=== PATIENT | female | born 1950 | race Caucasian/White ===

== ENCOUNTER 2018-10-23 00:31 | Emergency (ER) ==
[2018-10-23] MEDS ORDERED: SODIUM CHLORIDE 1,000 ML IV STA (00:43)
[2018-10-23] MEDS ORDERED: PHENERGAN 25 MG/ML VIAL 12.5 MG in SODIUM CHLORIDE 50 ML IV STA (00:44)
[2018-10-23] MEDS ORDERED: ZOFRAN 4 MG/2 ML IVP STA (00:44)
[2018-10-23 00:58] VITALS: BP 172/80; TEMP 98.2
--- NOTE | 2018-10-23 01:45 | CT ---
EXAM: CT scan brain without contrast HISTORY: Vertigo COMPARISON: None. FINDINGS: Contiguous axial images obtained from skull base to the convexities without contrast utili zing 5-mm collimation. Sagittal and coronal reconstructions were imaged and reviewed.. Ventricles a nd CSF spaces are prominent compatible with age appropriate atrophy. There is mild periventricular h ypodensity noted compatible with chronic microvascular disease. Atherosclerotic changes are seen inv olving the left vertebral and bilateral cavernous internal carotid arteries. Minimal mucoperiosteal thickening is seen in the bilateral maxillary sinuses. Mastoid air cells are clear. IMPRESSION: Age appropriate atrophy with chronic microvascular disease. ASVD.
--- NOTE | 2018-10-23 02:04 | ED.PDOC ---
General ED Provider: Dr. KAUSHAL GOTTI-ER Chief Complaint: Dizziness Stated Complaint: i feel like everything it spiinning Time Seen by Physician: 00:35 Mode of Arrival: Walk-In Information Source: Patient Exam Limitations: No limitations Nursing and Triage Documentation Reviewed and Agree: Yes Does patient meet sepsis criteria?: No System Inflammatory Response Syndrome: Not Applicable Sepsis Protocol: For patient's 13 years and over: Temp is 96.8 and below OR 101 and greater Pulse >90 BPM Resp >20/minute Acutely Altered Mental Status Are patient's symptoms suggestive of a new infection, such as: -Pneumonia -Skin, Soft Tissue -Endocarditis -UTI -Bone, Joint Infection -Implantable Device -Acute Abdominal Infection -Wound Infection -Meningitis -Blood Stream Catheter Infection -Unknown Neurological Complaint Exam - Neurological Deficit Complaint/Exam Patient Complains of: Reports: Abnormal sensation Symptom Onset Unknown: No Onset: Gradual Symptoms Are: Still present Initial Severity: Mild Current Severity: Moderate Location: Reports: Generalized Aggravating: Reports: None Alleviating: Reports: None Carotid Bruit Present: No Focal Weakness: Present: None Focal Sensory Loss: Present: None Gait: Normal Nystagmus Present: No Gag Reflex Present: Yes [id number]: Normal Findings Heel to Toe Normal: Yes Signs of Trauma: No Review of Systems - Review Of Systems Constitutional: Reports: No symptoms Eyes: Reports: No symptoms Ears, Nose, Mouth, Throat: Reports: No symptoms Respiratory: Reports: No symptoms Cardiac: Reports: No symptoms GI: Reports: No symptoms : Reports: No symptoms Musculoskeletal: Reports: No symptoms Skin: Reports: No symptoms Neurological: Reports: Other Endocrine: Reports: No symptoms Hematologic/Lymphatic: Reports: No symptoms All Other Systems: Reviewed and Negative Past Medical History - Past Medical History Previously Healthy: Yes Endocrine: Reports: Unknown Cardiovascular: Reports: Unknown Respiratory: Reports: Unknown Hematological: Reports: Unknown Gastrointestinal: Reports: Unknown Genitourinary: Reports: Unknown Neuro/Psych: Reports: Unknown Musculoskeletal: Reports: Unknown Cancer: Reports: Unknown Last Menstrual Period: UNKNOWN - Surgical History General Surgical History: Reports: Unknown - Family History Family History: Reports: Unknown - Social History Smoking Status: Former smoker Hx Substance Use: No Alcohol Screening: Occasionally - Immunizations Tetanus Shot up to Date: No Physical Exam - Physical Exam Appearance: Well-appearing, No pain distress, Well-nourished Eyes: ALTON ENT: Ears normal, Nose normal, Oropharynx normal Neck: Supple Respiratory: Airway patent Cardiovascular: RRR GI/: Soft, Nontender, No masses, Bowel sounds normal, No Organomegaly Musculoskeletal: Normal strength, ROM intact, No edema, No calf tenderness Skin: Warm, Dry, Normal color Neurological: Sensation intact, Alert, Oriented Psychiatric: Affect appropriate, Mood appropriate Interpretation - Radiology Interpretation Radiology Interpretation By: Radiologist Radiology Results: Negative Exam Interpreted: CT Scan - EKG Interpretation Time of EKG #1: 02:04 Rate: Normal Rhythm: Sinus Ectopy: None [place]: NL ST Segment: Normal Interpretation: nsr Re-Evaluation - Re-Evaluation Time of Re-Evaluation: 02:04 Status: Improved Vital Signs Stable: Yes Pain Level: 0 Appearance: NAD Lungs: Clear Skin: Warm and Dry CV: RRR Additional Comments: vertigo and nausea much better Critical Care Note - Critical Care Note Total Time (mins): 30 Course - Course Hematology/Chemistry: 10/23/18 00:50 10/23/18 00:50 Orders, Labs, Meds: Lab Review 10/23/18 10/23/18 10/23/18 00:50 00:50 00:50 WBC 9.62 RBC 4.61 Hgb 13.6 Hct 39.8 MCV 86.3 MCH 29.5 MCHC 34.2 RDW Coeff of Lionel 13.0 Plt Count 196 Immature Gran % (Auto) 0.3 Neut % (Auto) 56.2 Lymph % (Auto) 31.3 [place] % (Auto) 9.0 Eos % (Auto) 2.7 Baso % (Auto) 0.5 Immature Gran # (Auto) 0.0 Neut # (Auto) 5.4 Lymph # (Auto) 3.0 [place] # (Auto) 0.9 Eos # (Auto) 0.3 Baso # (Auto) 0.1 ESR 16 Sodium 137.5 Potassium 3.63 Chloride 100.5 Carbon Dioxide 26.9 Anion Gap 13.73 BUN 15.8 Creatinine 0.76 Estimated GFR (MDRD) 76.00 BUN/Creatinine Ratio 20.78 Glucose 126.0 H Calcium 10.15 Total Bilirubin 0.40 AST 21.6 ALT 26.3 Alkaline Phosphatase 64.5 Total Creatine Kinase 35.2 Troponin I < 0.012 Total Protein 8.50 H Albumin 4.78 Globulin 3.72 Albumin/Globulin Ratio 1.28 TSH 3.260 Free T4 1.10 Urine Color Urine Clarity Urine pH Ur Specific [place]ony Urine Protein Urine Glucose (UA) Urine Ketones Urine Blood Urine Nitrite Urine Bilirubin Urine Urobilinogen Ur Leukocyte Esterase Urine Microscopic RBC Ur Squamous Epith Cells 10/23/18 01:46 WBC RBC Hgb Hct MCV MCH MCHC RDW Coeff of Lionel Plt Count Immature Gran % (Auto) Neut % (Auto) Lymph % (Auto) [place] % (Auto) Eos % (Auto) Baso % (Auto) Immature Gran # (Auto) Neut # (Auto) Lymph # (Auto) [place] # (Auto) Eos # (Auto) Baso # (Auto) ESR Sodium Potassium Chloride Carbon Dioxide Anion Gap BUN Creatinine Estimated GFR (MDRD) BUN/Creatinine Ratio Glucose Calcium Total Bilirubin AST ALT Alkaline Phosphatase Total Creatine Kinase Troponin I Total Protein Albumin Globulin Albumin/Globulin Ratio TSH Free T4 Urine Color Yellow Urine Clarity Clear Urine pH 8.5 Ur Specific [place]ony 1.015 Urine Protein 1+ Urine Glucose (UA) Negative Urine Ketones Trace Urine Blood Trace-intact Urine Nitrite Negative Urine Bilirubin Negative Urine Urobilinogen 0.2 Ur Leukocyte Esterase Negative Urine Microscopic RBC 0-2 Ur Squamous Epith Cells 0-2 Orders Category Date Time Status EKG-(ED ONLY) Stat CARDIO 10/23/18 00:42 Completed ED [employer] MANAGER APPLIED .ONCE EMERGENCY 10/23/18 00:43 Active IV [ED IV/MEDIPORT/POWERPORT] .ONCE EMERGENCY 10/23/18 00:43 Active CBC W/ AUTO DIFF Stat LAB 10/23/18 00:50 Completed COMPREHENSIVE METABOLIC PANEL Stat LAB 10/23/18 00:50 Completed CREATINE KINASE Stat LAB 10/23/18 00:50 Completed ESR Stat LAB 10/23/18 00:50 Completed FREE T4 (FREE THYROXINE) Stat LAB 10/23/18 00:50 Completed THYROID STIMULATING HORMONE Stat LAB 10/23/18 00:50 Completed TROPONIN I Stat LAB 10/23/18 00:50 Completed URINALYSIS C & S IF INDICATED Stat LAB 10/23/18 01:46 Completed 0.9 % Sodium Chloride [Saline Flush] MEDS 10/23/18 00:43 Ordered 1 syr IVF PRN PRN Ondansetron HCl/Pf [Zofran 4 mg/2 ml] MEDS 10/23/18 00:44 Discontinued 4 mg IVP ONCE STA Promethazine HCl [Phenergan 25 mg/ml Vial] 12.5 mg MEDS 10/23/18 00:44 Discontinued 0.9 % Sodium Chloride [Sodium Chloride] 50 ml IV ONCE Sodium Chloride 0.9% [Sodium Chloride] 1,000 ml MEDS 10/23/18 00:[address] HEAD W/O CONTRAST Stat RADS 10/23/18 00:44 Completed Medications Generic Name Dose Route Start Last Admin Trade Name Freq PRN Reason Stop Dose Admin Sodium Chloride 1,000 mls @ 500 mls/hr 10/23/18 00:43 10/23/18 00:57 Sodium Chloride IV 10/23/18 02:42 500 mls/hr BOLUS STA Administration Sodium Chloride 1 syr 10/23/18 00:43 Saline Flush IVF PRN PRN To flush IV Discontinued Medications Generic Name Dose Route Start Last Admin Trade Name Freq PRN Reason Stop Dose Admin Promethazine HCl 12.5 mg/ 50.5 mls @ 75 mls/hr 10/23/18 00:44 Sodium Chloride IV 10/23/18 01:24 ONCE STA Ondansetron HCl 4 mg 10/23/18 00:44 10/23/18 00:57 Zofran 4 Mg/2 Ml IVP 10/23/18 00:45 4 mg ONCE STA Administration Vital Signs: Temp Pulse Resp BP Pulse Ox 10/23/18 00:32 98.2 F 76 20 172/80 H 99 Departure - Departure Time of Disposition: 02:05 Disposition: HOME SELF-CARE Discharge Problem: Vertigo Instructions: Vertigo (ED) Condition: Good Pt referred to PMD for follow-up: No IPMP verified?: No Additional Instructions: antivert 25mg tid #30---avoid driving,climbing etc while having vertigo--f/u with pcp in a few days if not improved Allergies/Adverse Reactions: Allergies codeine Adverse Reaction (Verified 10/23/18 00:51) Abdominal Pain Penicillins Adverse Reaction (Verified 10/23/18 00:51) Rash Home Medications: Ambulatory Orders 1 [Unobtainable] 10/23/18 Disposition Discussed With: Patient
== END 2018-10-23 02:15 | disposition home or self-care (01) ==
LOC: ED 00:31
DX: R42 Dizziness and giddiness (principal)
CPT/HCPCS: 36415; 80053; 81001; 82550; 84439; 84443; 84484; 85025; 85651; 93005; 93010; 96361; 96365; 96374; 96375; 99283